=== PATIENT | male | born 1995 | race Two or more races ===

== ENCOUNTER 2025-05-31 18:01 | Inpatient (IN) | payer MEDICAID, OTHER ==
[~2025-05-31] VITALS: Ht 177.8 cm; Wt 104.0 kg
[2025-05-31 18:51] LABS: Hematocrit 43.1 % (41.0-53.0); Hemoglobin 14.7 g/dL (13.5-17.5); Mean Corpuscular Hemoglobin 30.4 pg (28.0-32.0); Mean Corpuscular Volume 89.4 fL (80.0-100.0); Nucleated Red Blood Cells % 0.0 %
[2025-05-31 18:58] LABS: Chloride 101 mmol/L (98-107); Potassium 4.1 mmol/L (3.5-5.1); Sodium 136 mmol/L (136-145)
[2025-05-31 18:59] LABS: Anion Gap 10 (5-15); Calcium 9.5 mg/dL (8.7-10.4); Carbon Dioxide 25 mmol/L (20-31)
[2025-05-31 19:05] LABS: BUN/Creatinine Ratio 10.1 (10.0-20.0)
[2025-05-31 19:27] LABS: Blood Urea Nitrogen 8 mg/dL (9-23); Glucose 111 mg/dL (74-106)
--- NOTE | 2025-05-31 20:30 | ED.PDOC ---
Musculoskeletal HPI Comments 30-year-old male presents to ER with complaints of left knee pain x3 days. Patient with past medical history significant for chronic left knee pain reports he's been experiencing worsening pain/swelling to left knee x 3 days with inability to bear weight on left leg x 1 day. Patient presents to ER in wheelchair, afebrile, in mild distress. Denies fever, body aches, chills, night sweats, injury, calf pain, exposure to STD or any further symptoms/complaints Chief Complaint: Lower Extremity Time Seen by MD: 18:11 Primary Care Provider: UNKNOWN Reviewed Notes: Nurses Notes, Medications, Allergies Allergies: Coded Allergies: NO KNOWN ALLERGIES (Unverified , 05/31/25) Home Meds No Active Prescriptions or Reported Meds Information Source: Patient Mode of Arrival: Wheelchair Past Medical History Past Medical History (Other): Chronic left knee pain Surgical History: Denies all surgeries Family History Family History: Unknown Social History Smoker: Non-Smoker Alcohol: Denies ETOH Use Drugs: Denies Drug Use Lives In: Home Constitutional: denies: chills, diaphoresis, fatigue, fever, malaise, sweats, weakness, others EENTM: denies: blurred vision, double vision, ear bleeding, ear discharge, ear drainage, ear pain, ear ringing, eye pain, eye redness, hearing loss, mouth pain, mouth swelling, nasal discharge, nose bleeding, nose congestion, nose pain, photophobia, tearing, throat pain, throat swelling, voice changes, others Respiratory: denies: cough, hemoptysis, orthopnea, SOB at rest, shortness of breath, SOB with excertion, stridor, wheezing, others Cardiovascular: denies: chest pain, dizzy spells, diaphoresis, Dyspnea on exertion, edema, irregular heart beat, left arm pain, lightheadedness, palpitations, PND, syncope, others Gastrointestinal: denies: abdomen distended, abdominal pain, blood streaked bowels, constipated, diarrhea, dysphagia, difficulty swallowing, hematemesis, melena, nausea, poor appetite, poor fluid intake, rectal bleeding, rectal pain, vomiting, others Genitourinary: denies: burning, dysuria, flank pain, frequency, hematuria, incontinence, penile discharge, penile sore, pain, testicle pain, testicle swelling, urgency, others Neurological: denies: dizziness, fainting, headache, left sided numbness, left sided weakness, numbness, paresthesia, pre-existing deficit, right sided numbness, right sided weakness, seizure, speech problems, tingling, tremors, weakness, others Musculoskeletal: reports: others (As stated in HPI) Integumetry: reports: others (As stated in HPI) Allergic/Immunocompromised: denies: Difficulty Healing, Frequent Infections, Hives, Itching, others Hematologic/Lymphatic: denies: anemia, blood clots, easy bleeding, easy bruising, swollen glands, others Endocrine: denies: excessive hunger, excessive sweating, excessive thirst, excessive urination, flushing, intolerance to cold, intolerance to heat, unexplained weight gain, unexplained weight loss, others Psychiatric: denies: anxiety, bipolar disorder, depression, hopeless, panic disorder, schizophrenia, sleepless, suicidal, others Physical Exam General Appearance: Mild Distress HEENT: PERRL/EOMI Neck: Full Range of Motion, Non-Tender, Normal Respiratory: Chest Non-Tender, Lungs Clear, No Accessory Muscle Use, No Respiratory Distress, Normal Breath Sounds Cardiovascular: No Murmur, No Gallop, Regular Rate/Rhythm Breast Exam: Deferred Gastrointestinal: NOT DONE Genitalia: Deferred Pelvic: Deferred Rectal: Deferred Extremities: No calf tenderness, Normal capillary refill, Normal range of motion Musculoskeletal : Extremity Location: Knee (Significant swelling/increased warmth noted to left knee. Patient unable to bear weight on left leg due to left knee pain. No erythema/fluctuance/further skin changes noted. No other TTP to left lower extremity noted. Pulses intact) Neurologic: Alert, No Motor Deficits, No Sensory Deficits Cerebellar Function: Normal Reflexes: Normal Skin: Dry, Normal Color, Warm Peripheral Pulses: 2+ femoral (R), 2+ femoral (L), 2+ dorsalis pedis (R), 2+ dorsalis pedis (L), 2+ Radial (R), 2+ Radial (L), 2+ Brachial (R), 2+ Brachial (L) Lymphatic: No Adenopathy Was a procedure done? Was a procedure done?: No Sedation Sedation?: No Differential Diagnosis EXT Differential Diagnosis: Deep Vein Thrombosis, Septic, Neurovascular injury X-Ray, Labs, Meds, VS Vital Signs Date Time Temp Pulse Resp B/P (MAP) Pulse Ox O2 Delivery O2 Flow Rate FiO2 12/17/25 18:02 97.0 113 15 157/100 95 97.0 Lab Test 05/31/25 22:31 05/31/25 20:39 05/31/25 20:21 05/31/25 18:24 Range/Units Lactic Acid Level 1.9 3.6 *H 0.4-2.0 mmol/L Erythrocyte Sedimentation Rate 15 0-20 mm/hr C-Reactive Protein High Sensitivity 3.92 H <1.0 mg/dL Urine Color Yellow Yellow Urine Clarity Clear Clear Urine pH 6.0 5.0-9.0 Urine Specific [place] 1.027 1.001-1.035 Urine Protein Trace H Negative Urine Ketones Trace Negative Urine Blood Negative Negative /uL Urine Nitrite Negative Negative Urine Bilirubin Negative Negative Urine Urobilinogen 4 H Negative mg/dL Urine Leukocyte Esterase Trace Negative /uL Urine RBC 2 0 - 3 /hpf Urine Microscopic WBC 1 0-3 /HPF Urine Squamous Epithelial Cells None seen <5 /hpf Urine Bacteria None seen None Seen /hpf Urine Mucus Few None Seen Urine Glucose Normal Normal mg/dL Chlamydia trachomatis (SRUTHI) Pending Neisseria gonorrhoeae (SRUTHI) Pending White Blood Count 15.9 H 4.4-10.8 10^3/uL Red Blood Count 4.82 4.5-5.90 10^6/uL Hemoglobin 14.7 13.5-17.5 g/dL Hematocrit 43.1 41.0-53.0 % Mean Corpuscular Volume 89.4 80.0-100.0 fL Mean Corpuscular Hemoglobin 30.4 28.0-32.0 pg Mean Corpuscular Hemoglobin Concent 34.0 32.0-36.0 g/dL Red Cell Distribution Width 13.6 11.8-14.3 % Platelet Count 248 140-450 10^3/uL Mean Platelet Volume 10.6 6.9-10.8 fL Neutrophils (%) (Auto) 87.6 H 37.0-80.0 % Lymphocytes (%) (Auto) 7.0 L 10.0-50.0 % Monocytes (%) (Auto) 4.5 0.0-12.0 % Eosinophils (%) (Auto) 0.6 0.0-7.0 % Basophils (%) (Auto) 0.3 0.0-2.0 % Neutrophils # (Auto) 13.9 H 1.6-8.6 10 ^3/uL Lymphocytes # (Auto) 1.1 0.4-5.4 10 ^3/uL Monocytes # (Auto) 0.7 0-1.3 10 ^3/uL Eosinophils # (Auto) 0.1 0-0.8 10 ^3/uL Basophils # (Auto) 0.1 0-0.2 10 ^3/uL Nucleated Red Blood Cells 0.0 % Sodium Level 136 136-145 mmol/L Potassium Level 4.1 3.5-5.1 mmol/L Chloride Level 101 98-107 mmol/L Carbon Dioxide Level 25 20-31 mmol/L Anion Gap 10 5-15 Blood Urea Nitrogen 8 L 9-23 mg/dL Creatinine 0.79 0.700-1.30 mg/dL Glomerular Filtration Rate Calc 123 >90 mL/min BUN/Creatinine Ratio 10.1 10.0-20.0 Serum Glucose 111 H 74-106 mg/dL Calcium Level 9.5 8.7-10.4 mg/dL Current Medications Medications (Trade) Dose Ordered Sig/Maci Route Start Time Stop Time Status Last Admin Vancomycin HCl 250 ml @ 166.667 mls/hr ONCE ONCE IV 05/31/25 20:15 05/31/25 21:44 DC 05/31/25 22:45 Ceftriaxone Sodium 50 ml @ 100 mls/hr ONCE ONCE IV 05/31/25 20:15 05/31/25 20:44 DC 05/31/25 21:15 Ceftriaxone Sodium 50 ml @ 100 mls/hr ONCE ONCE IV 05/31/25 20:15 05/31/25 20:44 DC 05/31/25 21:15 Sodium Chloride 1,000 ml @ 1,000 mls/hr Q1H ONCE IV 05/31/25 20:15 05/31/25 21:14 DC 05/31/25 21:15 Ketorolac Tromethamine (Toradol Injection) 30 mg ONCE ONCE IV 05/31/25 21:30 05/31/25 21:31 IN 05/31/25 21:45 Sodium Chloride 1,000 ml @ 1,000 mls/hr Q1H ONCE IV 05/31/25 21:30 05/31/25 22:57 DC 05/31/25 23:36 PATIENT: KARINA ULLOAT: [id number]: [id number] : 1995 LOC: ER ROOM / BED: / AGE / SEX: 30 / M ADM STATUS: REG ER SERVICE 03 ORDERING PHYSICIAN: PINA MORILLO PROCEDURE(s): LKNE3 - L KNEE 3V XRAY REASON: left knee pain ORDER NUMBER(s): [id number], ACCESSION NUMBER(s): [id number] CLINICAL INDICATION: left knee pain TECHNIQUE: 3 radiographic views of the left knee were obtained. COMPARISON: None FINDINGS/IMPRESSION: No fracture or dislocation. Findings suggest joint effusion above the patella. ATED BY: PALLAVI LOPEZ Jr., DO DICTATED DATE/TIME: 05/31/252037 SIGNED BY: PALLAVI LOPEZ Jr., SIGNED DATE/TIME: 05/31/252037 CC: PATIENT: MARY ULLOACCT: [id number] UNIT: [id number] : 1995 LOC: ER ROOM / BED: / AGE / SEX: 30 / M ADM STATUS: REG ER SERVICE 03 ORDERING PHYSICIAN: PINA MORILLO PROCEDURE(s): LLDVT - LT Lower DVT REASON: left leg pain ORDER NUMBER(s): [id number], ACCESSION NUMBER(s): [id number] Left lower extremity venous duplex CLINICAL HISTORY: left leg pain COMPARISON: None TECHNIQUE: Duplex Doppler evaluation of the deep venous system of the left lower extremity from the common femoral vein to the popliteal vein including color Doppler and spectral/pulsed waveform analysis was performed. FINDINGS: The common femoral vein demonstrates appropriate compressibility and waveform variability. There is compressibility/patency of the great saphenous vein at the proximal thigh. The femoral vein demonstrates appropriate compressibility and waveform variability. The deep femoral vein demonstrates appropriate compressibility and waveform variability. The popliteal vein demonstrates appropriate compressibility and waveform variability. There is normal compressibility at the tibioperoneal trunk. Enlarged lymph node in the left groin measuring 2.1 cm, likely reactive. IMPRESSION: No left femoropopliteal venous thrombosis. ATED BY: NANDO BOSWELL MD DICTATED DATE/TIME: 05/31/252055 SIGNED BY: NANDO BOSWELL MD SIGNED DATE/TIME: 05/31/252055 CC: CBC reviewed- + leukocytosis and + neutrophilia BMP reviewed without any significant abnormalities Blood cultures ordered Lactic acid reviewed - 3.6 ESR reviewed - normal CRP reviewed - 3.92 Urinalysis and chlamydia/gonorrhea amplification test ordered Left knee x-ray reviewed Left lower DVT ultrasound reviewed Patient neurovascularly intact Patient presents with acute atraumatic hot swollen left knee, inability to bear weight and + leukocytosis/lactic acidosis Empiric IV antibiotics and IV fluids started Toradol ordered Patient verbalized understanding and agreeable with current plan of care Patient admitted to hospitalist for suspected septic arthritis left knee/need for continued IV antibiotics and ortho consult Time of 1ST Reevaluation: 20:24 Reevaluation 1ST: N/A Patient Education/Counseling: Diagnosis, Treatment, Prognosis, Need For Follow Up Family Education/Counseling: No Family Present Sepsis Sepsis Reasesment Focused Exam Orders: Laboratory Tests 05/31/25 20:39: Lactic Acid Level 3.6 05/31/25 22:31: Lactic Acid Level 1.9 Departure 1 Departure Time of Disposition: 20:30 Impression: Primary Impression: Large suprapatellar effusion of knee Additional Impressions: Leukocytosis Qualified Codes: D72.829 - Elevated white blood cell count, unspecified Sepsis Qualified Codes: A41.9 - Sepsis, unspecified organism Disposition: ADMITTED INPATIENT Condition: Serious e-Prescriptions No Active Prescriptions or Reported Meds Critical Care Note Critical Care Time?: No Stability Stability form required: No Heart Score Heart Score: Heart Score Response (Comments) Value History N/A 0 EKG N/A 0 Age N/A 0 Risk Factors N/A 0 Troponin N/A 0 Total 0 PINA MORILLO May 31, 2025 20:30
--- NOTE | 2025-05-31 20:40 | DVH ---
CLINICAL INDICATION: left knee pain TECHNIQUE: 3 radiographic views of the left knee were obtained. COMPARISON: None FINDINGS/IMPRESSION: No fracture or dislocation. Findings suggest joint effusion above the patella.
--- NOTE | 2025-05-31 20:59 | DVH ---
Left lower extremity venous duplex CLINICAL HISTORY: left leg pain COMPARISON: None TECHNIQUE: Duplex Doppler evaluation of the deep venous system of the left lower extremity from the common femoral vein to the popliteal vein including color Doppler and spectral/pulsed waveform analysis was performed. FINDINGS: The common femoral vein demonstrates appropriate compressibility and waveform variability. There is compressibility/patency of the great saphenous vein at the proximal thigh. The femoral vein demonstrates appropriate compressibility and waveform variability. The deep femoral vein demonstrates appropriate compressibility and waveform variability. The popliteal vein demonstrates appropriate compressibility and waveform variability. There is normal compressibility at the tibioperoneal trunk. Enlarged lymph node in the left groin measuring 2.1 cm, likely reactive. IMPRESSION: No left femoropopliteal venous thrombosis.
[2025-05-31] MEDS: SODIUM CHLORIDE 0.9% 1,000 ML IV ONE ×2 (21:15→23:36)
[2025-05-31 21:26] LABS: Lactic Acid w/Reflex 3.6 mmol/L (0.4-2.0)
[2025-05-31] MEDS: KETOROLAC TROMETH 30 MG/ML 1ML VIAL IV ONE (21:45)
[2025-05-31] MEDS ORDERED: TEMAZEPAM 15 MG CAP PO PRN (22:45)
[2025-05-31] MEDS ORDERED: VANCOMYCIN PER PHARMACY 0 MG IV SCH (22:45)
[2025-05-31] MEDS: VANCOMYCIN 1.5GM/250ML 250 ML IV ONE (22:45)
[2025-05-31] MEDS ORDERED: ONDANSETRON HCL 4 MG/2 ML VIAL IV PRN (22:45)
[2025-05-31 23:41] LABS: Urine Protein, UAD TRACE (Negative)
[2025-05-31] MEDS: CEFEPIME 1GM/50ML D5W or NS KIT IV ONE (23:43)
[2025-06-01] VITALS (7 sets, daily range): BP systolic 113–134; BP diastolic 71–88; PULSE 90–112; RESP 16–20; TEMP 97.8–100.2; O2SAT 94–97
[2025-06-01] MEDS: HYDROcodone-ACET 5/325MG TAB PO PRN (00:05)
[2025-06-01] MEDS: ACETAMINOPHEN 325 MG TAB PO PRN (00:06)
[2025-06-01 02:30] LABS: Hematocrit 39.0 % (41.0-53.0); Hemoglobin 13.1 g/dL (13.5-17.5); Mean Corpuscular Hemoglobin 30.0 pg (28.0-32.0); Mean Corpuscular Volume 89.1 fL (80.0-100.0); Nucleated Red Blood Cells % 0.0 %
[2025-06-01 02:40] LABS: Chloride 105 mmol/L (98-107); Potassium 3.9 mmol/L (3.5-5.1); Sodium 139 mmol/L (136-145)
[2025-06-01 02:41] LABS: Anion Gap 11 (5-15); Calcium 8.8 mg/dL (8.7-10.4); Carbon Dioxide 23 mmol/L (20-31)
[2025-06-01 02:46] LABS: BUN/Creatinine Ratio 14.3 (10.0-20.0); Blood Urea Nitrogen 10 mg/dL (9-23)
[2025-06-01 02:48] LABS: Glucose 130 mg/dL (74-106)
--- NOTE | 2025-06-01 04:17 | DVHHP2 ---
History of Present Illness Reason for Visit: Knee swelling History of Present Illness 30-year-old male presents for evaluation of knee swelling. Patient reports a two day history of worsening left knee swelling extending down to his foot. Denies fever or chills. He does report a history of gout patient has not able to ambulate due to extreme pain. Past Medical History Gout Past Surgical History Denies Family History Noncontributory Smoke: No ALCOHOL: none Drugs: None Lives: with Family Review of Systems Review of Systems Review of systems are currently negative otherwise addressed in HPI. Allergies: Coded Allergies: NO KNOWN ALLERGIES (Unverified , 05/31/25) Medications Current Medications Medications Dose Ordered Sig/Maic Route Start Time Stop Time Status Last Admin Dose Admin Cefepime HCl 50 ml @ 12.5 mls/hr Q12HR IV 06/01/25 10:00 Vancomycin HCl 0 ml @ 0 mls/hr PER PHARMACY IV 05/31/25 22:45 UNV Ketorolac Tromethamine 15 mg Q6HPRN PRN IV 05/31/25 22:45 06/05/25 22:44 Acetaminophen/ Hydrocodone Bitart 1 tab Q4HP PRN PO 05/31/25 22:45 06/01/25 00:05 1 TAB Temazepam 15 mg QHSP PRN PO 05/31/25 22:45 Ondansetron HCl 4 mg Q4HP PRN IV 05/31/25 22:45 Acetaminophen 650 mg Q6HP PRN PO 05/31/25 22:45 06/01/25 00:06 650 MG Exam Vital Signs Vital Signs Date Time Temp Pulse Resp B/P (MAP) Pulse Ox O2 Delivery O2 Flow Rate FiO2 05/31/25 18:02 97.0 113 15 157/100 95 97.0 Exam Gen: 30-year-old male in mild distress Skin: Warm, dry, normal color and texture, no rash. HEENT: Normocephalic atraumatic, mucous membranes moist and pink. Neck: Cervical and supraclavicular nodes normal without enlargement, trachea is midline, thyroid gland is normal without masses. Pulmonary: Clear to auscultation and percussion bilaterally. Cardiac: Regular rate and rhythm. No murmur Abdomen: Soft, nontender, nondistended, bowel sounds present all 4 quadrants, no guarding, no rigidity, no organomegaly. Extremities: No cyanosis, clubbing, left knee swelling with tenderness Neuro: Cranial nerves II through XII grossly intact, normal affect and speech, no focal motor deficits. Labs/Xrays ORDERING PHYSICIAN: PINA MORILLO PROCEDURE(s): LLDVT - LT Lower DVT REASON: left leg pain ORDER NUMBER(s): [id number], ACCESSION NUMBER(s): [id number] Left lower extremity venous duplex CLINICAL HISTORY: left leg pain COMPARISON: None TECHNIQUE: Duplex Doppler evaluation of the deep venous system of the left lower extremity from the common femoral vein to the popliteal vein including color Doppler and spectral/pulsed waveform analysis was performed. FINDINGS: The common femoral vein demonstrates appropriate compressibility and waveform variability. There is compressibility/patency of the great saphenous vein at the proximal thigh. The femoral vein demonstrates appropriate compressibility and waveform variability. The deep femoral vein demonstrates appropriate compressibility and waveform variability. The popliteal vein demonstrates appropriate compressibility and waveform variability. There is normal compressibility at the tibioperoneal trunk. Enlarged lymph node in the left groin measuring 2.1 cm, likely reactive. IMPRESSION: No left femoropopliteal venous thrombosis. RING PHYSICIAN: PINA MORILLO PROCEDURE(s): LKNE3 - L KNEE 3V XRAY REASON: left knee pain ORDER NUMBER(s): [id number], ACCESSION NUMBER(s): [id number] CLINICAL INDICATION: left knee pain TECHNIQUE: 3 radiographic views of the left knee were obtained. COMPARISON: None FINDINGS/IMPRESSION: No fracture or dislocation. Findings suggest joint effusion above the patella. Labs Test 06/01/25 01:34 05/31/25 22:31 05/31/25 20:39 05/31/25 20:21 Range/Units White Blood Count 12.9 H 4.4-10.8 10^3/uL Red Blood Count 4.38 L 4.5-5.90 10^6/uL Hemoglobin 13.1 L 13.5-17.5 g/dL Hematocrit 39.0 L 41.0-53.0 % Mean Corpuscular Volume 89.1 80.0-100.0 fL Mean Corpuscular Hemoglobin 30.0 28.0-32.0 pg Mean Corpuscular Hemoglobin Concent 33.6 32.0-36.0 g/dL Red Cell Distribution Width 13.4 11.8-14.3 % Platelet Count 233 140-450 10^3/uL Mean Platelet Volume 11.1 H 6.9-10.8 fL Neutrophils (%) (Auto) 82.1 H 37.0-80.0 % Lymphocytes (%) (Auto) 10.5 10.0-50.0 % Monocytes (%) (Auto) 6.9 0.0-12.0 % Eosinophils (%) (Auto) 0.2 0.0-7.0 % Basophils (%) (Auto) 0.3 0.0-2.0 % Neutrophils # (Auto) 10.6 H 1.6-8.6 10 ^3/uL Lymphocytes # (Auto) 1.4 0.4-5.4 10 ^3/uL Monocytes # (Auto) 0.9 0-1.3 10 ^3/uL Eosinophils # (Auto) 0 0-0.8 10 ^3/uL Basophils # (Auto) 0 0-0.2 10 ^3/uL Nucleated Red Blood Cells 0.0 % Sodium Level 139 136-145 mmol/L Potassium Level 3.9 3.5-5.1 mmol/L Chloride Level 105 98-107 mmol/L Carbon Dioxide Level 23 20-31 mmol/L Anion Gap 11 5-15 Blood Urea Nitrogen 10 9-23 mg/dL Creatinine 0.70 0.700-1.30 mg/dL Glomerular Filtration Rate Calc 128 >90 mL/min BUN/Creatinine Ratio 14.3 10.0-20.0 Serum Glucose 130 H 74-106 mg/dL Uric Acid 3.2 L 3.7-9.2 mg/dL Calcium Level 8.8 8.7-10.4 mg/dL Lactic Acid Level 1.9 0.4-2.0 mmol/L Erythrocyte Sedimentation Rate 15 0-20 mm/hr C-Reactive Protein High Sensitivity 3.92 H <1.0 mg/dL Urine Color Yellow Yellow Urine Clarity Clear Clear Urine pH 6.0 5.0-9.0 Urine Specific [place] 1.027 1.001-1.035 Urine Protein Trace H Negative Urine Ketones Trace Negative Urine Blood Negative Negative /uL Urine Nitrite Negative Negative Urine Bilirubin Negative Negative Urine Urobilinogen 4 H Negative mg/dL Urine Leukocyte Esterase Trace Negative /uL Urine RBC 2 0 - 3 /hpf Urine Microscopic WBC 1 0-3 /HPF Urine Squamous Epithelial Cells None seen <5 /hpf Urine Bacteria None seen None Seen /hpf Urine Mucus Few None Seen Urine Glucose Normal Normal mg/dL SEPSIS Sepsis Screen Date sepsis recognized/suspect: May 31, 2025 Time Sepsis recognized/suspect: 1803 Recent Procedure: No Respiratory Rate >20: No Heart Rate >90: No Temp<36 C (96.8 F) or >38.3 C: No SBP <90 or MAP <65 mmHG: No New Acute Mental Status Change: No Is the patient on CPAP, BIPAP,: No Physician Orders Chlamydia/Gc Amplification (05/31/25 20:15) Cefepime 1gm/50ml (Maxipime 1gm/50ml) (06/01/25 10:00) Vancomycin Per Pharmacy (05/31/25 22:45) *Consult Dr. Alec Shah (05/31/25 22:41) Ketorolac Injection (Toradol Injection) (05/31/25 22:45) Admit (05/31/25 22:41) Hydrocodone-Acet 5/325mg Tab ([place] 5/32 (05/31/25 22:45) Temazepam (Restoril) (05/31/25 22:45) Ondansetron Hcl (Zofran) (05/31/25 22:45) Condition: Stable (05/31/25 22:41) Acetaminophen Tablet (Tylenol Tablet) (05/31/25 22:45) Bedrest With Bathroom Privileg (05/31/25 22:41) Hepatitis B Surface Antigen (06/01/25 02:25) Hepatitis C Antibody (06/01/25 02:25) Colchicine (Colcrys) (06/01/25 10:00) Laboratory Tests Test 05/31/25 18:24 05/31/25 20:39 05/31/25 22:31 06/01/25 01:34 White Blood Count 15.9 10^3/uL (4.4-10.8) H 12.9 10^3/uL (4.4-10.8) H Lactic Acid Level 3.6 mmol/L (0.4-2.0) *H 1.9 mmol/L (0.4-2.0) Medications Medications Dose Ordered Sig/Maci Route Start Time Stop Time Status Last Admin Dose Admin Acetaminophen 650 mg Q6HP PRN PO 05/31/25 22:45 06/01/25 00:06 650 MG Acetaminophen/ Hydrocodone Bitart 1 tab Q4HP PRN PO 05/31/25 22:45 06/01/25 00:05 1 TAB Cefepime HCl 50 ml @ 50 mls/hr ONCE ONCE IV 05/31/25 23:15 06/01/25 00:14 DC 05/31/25 23:43 50 MLS/HR Ceftriaxone Sodium 50 ml @ 100 mls/hr ONCE ONCE IV 05/31/25 20:15 05/31/25 20:44 DC 05/31/25 21:15 100 MLS/HR Ceftriaxone Sodium 50 ml @ 100 mls/hr ONCE ONCE IV 05/31/25 20:15 05/31/25 20:44 DC 05/31/25 21:15 100 MLS/HR Ketorolac Tromethamine 30 mg ONCE ONCE IV 05/31/25 21:30 05/31/25 21:31 DC 05/31/25 21:45 30 MG Sodium Chloride 1,000 ml @ 1,000 mls/hr Q1H ONCE IV 05/31/25 20:15 05/31/25 21:14 DC 05/31/25 21:15 1,000 MLS/HR Sodium Chloride 1,000 ml @ 1,000 mls/hr Q1H ONCE IV 05/31/25 21:30 05/31/25 22:57 DC 05/31/25 23:36 1,000 MLS/HR Vancomycin HCl 250 ml @ 166.667 mls/hr ONCE ONCE IV 05/31/25 20:15 05/31/25 21:44 DC 05/31/25 22:45 166.667 MLS/HR Assessment/Plan Assessment/Plan Assessment ? Septic knee Leukocytosis Early sepsis Plan Admit the patient to [facility] to the hospitalist Cefepime/vancomycin Ortho consult Pain management Resume home medications Continue treatment per orders. Plan discussed with: Patient My Orders Orders - ELAINE SCOTT Procedure Category Date Status Time Cefepime 1gm/50ml PHA 06/01/25 In Process (Maxipime 1gm/50ml) 10:00 Vancomycin Per PHA 05/31/25 Pending Pharmacy 22:45 *Consult Dr. Michael CONS 05/31/25 Transmitted Alyssa 22:41 Ketorolac Injection PHA 05/31/25 In Process (Toradol Injection) 22:45 Admit ADMIT 05/31/25 Transmitted 22:41 Hydrocodone-Acet PHA 05/31/25 In Process 5/325mg Tab ([place] 22:45 Temazepam (Restoril) PHA 05/31/25 In Process 22:45 Ondansetron Hcl PHA 05/31/25 In Process (Zofran) 22:45 Condition: Stable JHONATAN 05/31/25 In Process 22:41 Acetaminophen Tablet PHA 05/31/25 In Process (Tylenol Tablet) 22:45 Bedrest With Bathroom JHONATAN 05/31/25 In Process Privileg 22:41 Hepatitis B Surface LAB 06/01/25 Logged Antigen 02:25 Hepatitis C Antibody LAB 06/01/25 Logged 02:25 Colchicine (Colcrys) PHA 06/01/25 Verified 10:00 Date of Service: May 31, 2025 Billing Provider: ELAINE SCOTT Common Visit Codes: [id number] INP/OBS CARE (MOD) ELAINE SCOTT Jun 01, 2025 04:17
[2025-06-01] MEDS: COLCHICINE 0.6 MG CAP PO SCH (09:38)
[2025-06-01] MEDS: VANCOMYCIN 1GM/250ML KIT 250 ML IV SCH (09:39)
--- NOTE | 2025-06-01 11:58 | DVHPN2 ---
Subjective The patient seen and examined at bedside. Complains of knee pain. Reviewed: Care Plan, H&P, Labs, Medications, Previous Orders, Radiology Changes from previous H/P or p: No Changes Objective Vitals Vital Signs Date Time Temp Pulse Resp B/P (MAP) Pulse Ox O2 Delivery O2 Flow Rate FiO2 06/01/25 08:39 98.2 93 20 113/71 (85) 96 98.2 06/01/25 08:00 Room Air* 0 21 Intake/Output Intake and Output 06/01/25 07:00 Intake Total 0 ml Balance 0 ml Intake Oral 0 ml General Appearance: Alert, Oriented X3, Cooperative, No acute distress HEENT: Atraumatic, PERRLA, EOMI, Mucous membr. moist/pink Neck: Supple Lungs: Clear to auscultation, Normal air movement Cardiovascular: Regular rate, Normal S1, Normal S2, No murmurs, Gallops, Rubs Abdomen: Normal bowel sounds, Soft, No tenderness Neuro: Cranial nerves 3-12 NL Psych/Mental Status: Mental status NL Medications Current Medications Medications Dose Ordered Sig/Maci Route Start Time Stop Time Status Last Admin Dose Admin Cefepime HCl 50 ml @ 12.5 mls/hr Q12HR IV 06/01/25 10:00 Vancomycin HCl 0 ml @ 0 mls/hr PER PHARMACY IV 05/31/25 22:45 Ketorolac Tromethamine 15 mg Q6HPRN PRN IV 05/31/25 22:45 06/05/25 22:44 Acetaminophen/ Hydrocodone Bitart 1 tab Q4HP PRN PO 05/31/25 22:45 06/01/25 09:38 1 TAB Temazepam 15 mg QHSP PRN PO 05/31/25 22:45 Ondansetron HCl 4 mg Q4HP PRN IV 05/31/25 22:45 Acetaminophen 650 mg Q6HP PRN PO 05/31/25 22:45 06/01/25 00:06 650 MG Colchicine 0.6 mg DAILY PO 06/01/25 10:00 06/01/25 09:38 0.6 MG Vancomycin HCl 250 ml @ 250 mls/hr Q8H IV 06/01/25 10:00 06/01/25 09:39 250 MLS/HR Laboratory Results Laboratory Tests 06/01/25 01:34 Chemistry Test 05/31/25 18:24 06/01/25 01:34 Calcium Level 9.5 mg/dL (8.7-10.4) 8.8 mg/dL (8.7-10.4) Urinalysis Test 05/31/25 20:21 Urine Color Yellow (Yellow) Urine Clarity Clear (Clear) Urine pH 6.0 (5.0-9.0) Urine Specific [place] 1.027 (1.001-1.035) Urine Protein Trace (Negative) H Urine Ketones Trace (Negative) Urine Blood Negative /uL (Negative) Urine Nitrite Negative (Negative) Urine Bilirubin Negative (Negative) Urine Urobilinogen 4 mg/dL (Negative) H Urine Leukocyte Esterase Trace /uL (Negative) Urine RBC 2 /hpf (0 - 3) Urine Microscopic WBC 1 /HPF (0-3) Urine Squamous Epithelial Cells None seen /hpf (<5) Urine Bacteria None seen /hpf (None Seen) Urine Mucus Few (None Seen) Urine Glucose Normal mg/dL (Normal) Labs and/or images reviewed: Labs reviewed by me Assessment/Plan Assessment/Plan Right knee effusion, need to rule out septic knee Sepsis Leukocytosis Gout, uric acid normal Continue current management. Continue Cefepime/vancomycin Ortho consult Pain management with pain meds Plan discussed with: Patient Date of Service: Jun 01, 2025 Billing Provider: COOKIE FLYNN MD Common Visit Codes: [id number] INP/OBS CARE(HIGH) COOKIE FLYNN MD Jun 01, 2025 11:58
[2025-06-01] MEDS: CEFEPIME 1GM/50ML 50 ML IV SCH (12:36)
[2025-06-01] MEDS: KETOROLAC TROMETH 30 MG/ML 1ML VIAL IV PRN (14:14)
--- NOTE | 2025-06-01 18:02 | DVHINCON2 ---
Date of service: Jun 01, 2025 Reason for Consultation Left knee effusion/pain History of Present Illness 30 yo M with hx of gout with left knee severe pain/effusion x 2 days; trouble with adl/walking/bending knee due to pain; no injury Past Medical History Past Medical History Gout Past Surgical History Denies Family History Noncontributory Smoke: No ALCOHOL: none Drugs: None Lives: with Family Family History: Diabetes mellitus G8 FATHER Allergies: Coded Allergies: NO KNOWN ALLERGIES (Unverified , 05/31/25) Home Meds No Active Prescriptions or Reported Meds Current Medications Current Medications Medications (Trade) Dose Ordered Sig/Maci Route PRN Reason Start Time Stop Time Status Last Admin Cefepime HCl 50 ml @ 12.5 mls/hr Q12HR IV 06/01/25 10:00 06/01/25 12:36 Vancomycin HCl 0 ml @ 0 mls/hr PER PHARMACY IV 05/31/25 22:45 Ketorolac Tromethamine (Toradol Injection) 15 mg Q6HPRN PRN IV SEVERE PAIN (7-10 PAIN SCALE) 05/31/25 22:45 06/05/25 22:44 06/01/25 14:14 Acetaminophen/ Hydrocodone Bitart ([place] 5/325MG Tab) 1 tab Q4HP PRN PO MODERATE PAIN (4-6 PAIN SCALE) 05/31/25 22:45 06/01/25 09:38 Temazepam (Restoril) 15 mg QHSP PRN PO FOR INSOMNIA 05/31/25 22:45 Ondansetron HCl (Zofran) 4 mg Q4HP PRN IV NAUSEA / VOMITING 05/31/25 22:45 Acetaminophen (Tylenol Tablet) 650 mg Q6HP PRN PO PAIN SCALE 1-3 OR TEMP>100.4 05/31/25 22:45 06/01/25 00:06 Colchicine (Colcrys) 0.6 mg DAILY PO 06/01/25 10:00 06/01/25 09:38 Vancomycin HCl 250 ml @ 250 mls/hr Q8H IV 06/01/25 10:00 06/01/25 09:39 Review of Systems 10 POINT ROS IS Neg except per HPI Vital Signs Vital Signs Date Time Temp Pulse Resp B/P (MAP) Pulse Ox O2 Delivery O2 Flow Rate FiO2 06/01/25 12:22 98.3 101 20 127/84 (98) 96 98.3 06/01/25 08:00 Room Air* 0 21 Physical Exam NAD LLE: +effusion at knee ROM 0-15 at knee with pain +ta/gs/ehl/fhl foot wwp Labs/Diagnostic Data Labs Test 06/01/25 14:30 06/01/25 01:34 05/31/25 22:31 05/31/25 20:39 Range/Units Body Fluid Source L. knee fluid Body Fluid WBC (Manual) 46246 H 0-200 CUMM Body Fluid RBC (Manual) 328 0-2000 CUMM Body Fluid Mononuclear Cells 5 % Body Fluid Polymorphonuclear Cells 95 H 0-25 % White Blood Count 12.9 H 4.4-10.8 10^3/uL Red Blood Count 4.38 L 4.5-5.90 10^6/uL Hemoglobin 13.1 L 13.5-17.5 g/dL Hematocrit 39.0 L 41.0-53.0 % Mean Corpuscular Volume 89.1 80.0-100.0 fL Mean Corpuscular Hemoglobin 30.0 28.0-32.0 pg Mean Corpuscular Hemoglobin Concent 33.6 32.0-36.0 g/dL Red Cell Distribution Width 13.4 11.8-14.3 % Platelet Count 233 140-450 10^3/uL Mean Platelet Volume 11.1 H 6.9-10.8 fL Neutrophils (%) (Auto) 82.1 H 37.0-80.0 % Lymphocytes (%) (Auto) 10.5 10.0-50.0 % Monocytes (%) (Auto) 6.9 0.0-12.0 % Eosinophils (%) (Auto) 0.2 0.0-7.0 % Basophils (%) (Auto) 0.3 0.0-2.0 % Neutrophils # (Auto) 10.6 H 1.6-8.6 10 ^3/uL Lymphocytes # (Auto) 1.4 0.4-5.4 10 ^3/uL Monocytes # (Auto) 0.9 0-1.3 10 ^3/uL Eosinophils # (Auto) 0 0-0.8 10 ^3/uL Basophils # (Auto) 0 0-0.2 10 ^3/uL Nucleated Red Blood Cells 0.0 % Sodium Level 139 136-145 mmol/L Potassium Level 3.9 3.5-5.1 mmol/L Chloride Level 105 98-107 mmol/L Carbon Dioxide Level 23 20-31 mmol/L Anion Gap 11 5-15 Blood Urea Nitrogen 10 9-23 mg/dL Creatinine 0.70 0.700-1.30 mg/dL Glomerular Filtration Rate Calc 128 >90 mL/min BUN/Creatinine Ratio 14.3 10.0-20.0 Serum Glucose 130 H 74-106 mg/dL Uric Acid 3.2 L 3.7-9.2 mg/dL Calcium Level 8.8 8.7-10.4 mg/dL Lactic Acid Level 1.9 0.4-2.0 mmol/L Erythrocyte Sedimentation Rate 15 0-20 mm/hr C-Reactive Protein High Sensitivity 3.92 H <1.0 mg/dL Test 05/31/25 20:21 Range/Units Urine Color Yellow Yellow Urine Clarity Clear Clear Urine pH 6.0 5.0-9.0 Urine Specific [place] 1.027 1.001-1.035 Urine Protein Trace H Negative Urine Ketones Trace Negative Urine Blood Negative Negative /uL Urine Nitrite Negative Negative Urine Bilirubin Negative Negative Urine Urobilinogen 4 H Negative mg/dL Urine Leukocyte Esterase Trace Negative /uL Urine RBC 2 0 - 3 /hpf Urine Microscopic WBC 1 0-3 /HPF Urine Squamous Epithelial Cells None seen <5 /hpf Urine Bacteria None seen None Seen /hpf Urine Mucus Few None Seen Urine Glucose Normal Normal mg/dL Plan/Recommendation 30 yo M with left knee effusion -- inflammatory vs septic knee 1. I had a long discussion with patient and family 2. Under sterile technique, left knee aspirated with 60 cc of serous fluid removed; sent for cell count/gram stain/culture+sens/crystals 3. fu on labs 4. pain control 5. most likely gout 6. recall as needed if labs demonstrate infection Plan discussed with: Patient SONDRA BOSWELL MD Jun 01, 2025 18:02
[2025-06-02 01:00] VITALS: BP 123/79; PULSE 97; RESP 16; TEMP 98.5; O2SAT 96
[2025-06-02 05:00] VITALS: BP 123/72; PULSE 104; RESP 17; TEMP 98.8; O2SAT 96
--- NOTE | 2025-06-02 07:27 | DVHPN2 ---
Progress Note Date Seen: Jun 02, 2025 Medical Necessity Reason Pt with a Central, PICC or Fol: No Subjective Patient reports: No new complaints, Feels better Objective vital signs Vital Sign Date Time Temp Pulse Resp B/P (MAP) Pulse Ox O2 Delivery O2 Flow Rate FiO2 06/02/25 05:00 98.8 104 17 123/72 (89) 96 98.8 06/01/25 20:00 Room Air* 0 21 Total Intake and Output 06/01/25 06/01/25 06/02/25 15:00 23:00 07:00 Intake Total 250 ml 1090 ml 1050 ml Output Total 850 ml 450 ml Balance 250 ml 240 ml 600 ml medications Current Medications Medications Dose Ordered Sig/Maci Route Start Time Stop Time Status Last Admin Dose Admin Cefepime HCl 50 ml @ 12.5 mls/hr Q12HR IV 06/01/25 10:00 06/01/25 21:25 12.5 MLS/HR Vancomycin HCl 0 ml @ 0 mls/hr PER PHARMACY IV 05/31/25 22:45 Ketorolac Tromethamine 15 mg Q6HPRN PRN IV 05/31/25 22:45 06/05/25 22:44 06/01/25 21:25 15 MG Acetaminophen/ Hydrocodone Bitart 1 tab Q4HP PRN PO 05/31/25 22:45 06/01/25 09:38 1 TAB Temazepam 15 mg QHSP PRN PO 05/31/25 22:45 Ondansetron HCl 4 mg Q4HP PRN IV 05/31/25 22:45 Acetaminophen 650 mg Q6HP PRN PO 05/31/25 22:45 06/01/25 00:06 650 MG Colchicine 0.6 mg DAILY PO 06/01/25 10:00 06/01/25 09:38 0.6 MG Vancomycin HCl 250 ml @ 250 mls/hr Q8H IV 06/01/25 10:00 06/02/25 02:00 250 MLS/HR Examination: GENERAL:Normal, MSK:Abnormal laboratory and microbiology Laboratory Tests 06/02/25 04:44 06/01/25 01:34 Test 06/01/25 01:34 Range/Units Serum Glucose 130 H 74-106 mg/dL Microbiology Date/Time Source Procedure Growth Status 05/31/25 20:44 Blood Blood Culture - Preliminary NO GROWTH AFTER 24 HOURS OF INCUBATION. Resulted Problem List/Assessment/Plan Problem List/Assessment/Plan Left knee effusion --- likely gout 1. Fu aspiration results -- consistent with inflammatory arthritis 2. WBAT 3. gout treatment 4. PT 5. recall as needed Plan discussed with: Patient My Orders My Orders Orders - SONDRA BOSWELL MD Procedure Category Date Status Time Body Fluid Culture W/ MATHEUS 06/01/25 In Process GS 14:19 SONDRA BOSWELL MD Jun 02, 2025 07:27
[2025-06-02 08:00] VITALS: RESP 19; O2SAT 96
[2025-06-02 08:36] VITALS: BP 132/82; PULSE 103; RESP 20; TEMP 99.5; O2SAT 95
[2025-06-02] MEDS: VANCOMYCIN 1.25GM/250ML 250 ML IV SCH (10:27)
[2025-06-02 10:44] LABS: Hepatitis B Surface Antigen Negative (Negative)
[2025-06-02 11:24] LABS: Hepatitis C Antibody Negative (Negative)
[2025-06-03 05:08] LABS: Chlamydia Trachomatis, NAA Negative (Negative); Neisseria gonorrhoeae, NAA Negative (Negative)
== END 2025-06-02 11:04 | disposition left against medical advice (07) | DRG 720 ==
LOC: ER 18:01 → OVERFLOW 22:41 → WEST WING 23:45
PROVIDERS: ADMIT Internal Medicine; ATTEND Internal Medicine
DX: A41.9 Sepsis, unspecified organism (principal); M00.9 Pyogenic arthritis, unspecified; M10.9 Gout, unspecified; M25.462 Effusion, left knee; Z53.29 Procedure and treatment not carried out because of patient's decision for other reasons; Z83.3 Family history of diabetes mellitus
CPT/HCPCS: 36415; 73562; 80048; 80202; 81001; 82565; 83605; 84550; 85025; 85652; 86141; 86803; 87040; 87071; 87205; 87340; 89051; 93971; G0378; J1885